=== PATIENT | female | born 1965 | race Caucasian/White ===

== ENCOUNTER → 2016-06-25 | Day surgery (SDC) | payer MEDICARE ==
[~2016-06-25] MED LIST: AMBIEN10 MG PO; BENTYL20 M1 PO; BUSPAR PO; CIPRO PO; IBUPROFEN PO; KEPPRA1000 MG PO; LIDODERM PATCH 5% TOP; NEURONTIN PO; OXYCODONE PO; OXYCONTIN PO; PHENERGAN25 M1 PO; ROBAXIN PO; SOMA PO; VOLTAREN75 MG PO
--- NOTE | ~2016-06-25 | OR ---
Unit #: [id number] #: [id number] Patient: JUNI ABRAHAM [id number] [address] [place], [place] [address] [id number] O MR#: [id number] NAME: JUNI ABRAHAM ROOM: Date of Procedure: 06/25/2016 Admission Date: 06/25/2016 Surgeon: Kashif Arvizu M.D. : 1965 Attending Physician: Kashif Arvizu M.D. Referring Physician: Shin Carbajal Jr., M.D. Primary Care Physician: Lupe Benjamin M.D. OPERATIVE REPORT JOB NOTE: CC: [facility] PREOPERATIVE DIAGNOSES 1. Low back pain, radiculopathy, herniated nucleus pulposus. 2. Neck pain, cervical radiculopathy, degenerative cervical disk disease. POSTOPERATIVE DIAGNOSES 1. Low back pain, radiculopathy, herniated nucleus pulposus. 2. Neck pain, cervical radiculopathy, degenerative cervical disk disease. PROCEDURES PERFORMED 1. Lumbar epidural steroid injection with intravenous sedation and fluoroscopic guidance for needle localization. 2. Cervical epidural steroid injection with fluoroscopic guidance for needle localization. INDICATIONS FOR PROCEDURE The patient is a 51-year-old female, who has had return of the previously mentioned symptoms due to previously mentioned nonsurgical pathology. She was treated 9 months ago and did well with 75% settling of the pain for about 6 months. The pain returned to its prior distribution at this point. She has chronic left lower extremity radicular pain that is not addressed by this procedure. The right lower extremity pain secondary to the new disk herniation is better addressed. Based on history, pathology, symptomatology, and prior response, we are going to repeat a trial of epidural steroids. Risks and benefits of all have been reviewed again. DESCRIPTION OF PROCEDURE The patient was placed in the seated position. Standard monitors were applied. 2 mg of Versed were given for sedation and anxiolysis, which were adequate. Vital signs remained stable. Sterile prep and drape then of the lumbar area was performed. The skin then at the L4-L5 level was localized with 1% lidocaine. An 18-gauge Fundrise needle was then advanced via loss of resistance technique and fluoroscopic guidance in toward the epidural space. The patient did not complain of pain or paresthesia during needle advancement. After confirming proper positioning with fluoroscopy and radiographic contrast, 80 mg of Depo-Medrol and 4 mL of 0.125% bupivacaine were deposited. Procedure #2: Cervical epidural steroid injection with fluoroscopic guidance. A separate kit was used to sterilely prep and drape the patient's cervical spine. The skin then at the C5-C6 level was localized Unit #: [id number] #: [id number] Patient: JUNI ABRAHAM with 1% lidocaine. An 18-gauge Fundrise needle was then advanced via hanging drop technique and fluoroscopic guidance in toward the epidural space. The patient did not complain of any pain or paresthesia during needle advancement. After confirming proper positioning with fluoroscopy and radiographic contrast, a dose of 80 mg of Depo-Medrol and 2 mL of preservative-free normal saline were deposited. The patient has some discomfort during the injection phase, which quickly abated. She tolerated the procedure otherwise well and was discharged to the recovery room in stable condition. Dictated by... Dave Livingston/beka TD: 06/26/2016 01:39 JOB #: [id number] OPERATIVE REPORT Page 1 of 1 X Kashif Arvizu MD X PROCEDURE OPERATIVE NOTE
== END | disposition home or self-care (01) ==
LOC: CCSC 08:26
DX: M51.16 Intervertebral disc disorders with radiculopathy, lumbar region (principal); M50.10 Cervical disc disorder with radiculopathy, unspecified cervical region; G89.29 Other chronic pain; M79.605 Pain in left leg
CPT/HCPCS: J1040; J2250

== ENCOUNTER → 2016-07-16 | Day surgery (SDC) | payer MEDICARE ==
--- NOTE | ~2016-07-16 | OR ---
Unit #: [id number] #: [id number] Patient: JUNI ABRAHAM [id number] [address] [place], [place] [address] [id number] O MR#: [id number] NAME: JUNI ABRAHAM ROOM: Date of Procedure: 07/16/2016 Admission Date: 07/16/2016 Surgeon: Kashif Arvizu M.D. : 1965 Attending Physician: Kashif Arvizu M.D. Referring Physician: Kashif Arvizu M.D. Primary Care Physician: Lupe Benjamin M.D. OPERATIVE REPORT JOB NOTE: CC: [facility] PREOPERATIVE DIAGNOSES 1. Cervical degenerative disk disease, neck pain, and cervical radiculopathy. 2. Lumbar disk herniation, back pain, and radiculopathy. POSTOPERATIVE DIAGNOSES 1. Cervical degenerative disk disease, neck pain, and cervical radiculopathy. 2. Lumbar disk herniation, back pain, and radiculopathy. PROCEDURES PERFORMED 1. Lumbar epidural steroid injection with intravenous sedation and fluoroscopic guidance for needle localization. 2. Cervical epidural steroid injection and fluoroscopic guidance for needle localization. INDICATIONS FOR PROCEDURE The patient is a 51-year-old female with return of neck and left upper extremity pain due to known significant left-sided degenerative disk disease most significant at the C5-C6 level, also back and right lower extremity pain due to postlaminectomy syndrome, and right-sided L3-L4 disk herniation. She is treated medically with p.r.n. epidural steroid injections. Last injection was done greater than 6 months ago resulted in greater than 60% improvement. Repeat injection done 3 weeks ago resulted in moderately good improvement in the back and leg pain. Neck injection was complicated bit by neurapraxia, which has since settled. Based on history, pathology, and symptomatology, plan is to repeat both injection today. DESCRIPTION OF PROCEDURE The patient was placed in a seated position. Standard monitors were applied. 1 mg of Versed was given for sedation and anxiolysis, which was adequate. Vital signs remained stable. Sterile prep and drape then of lumbar area was performed. The skin then at the L3-L4 level was localized with 1% lidocaine. An 18-gauge [employer] needle was then advanced via loss of resistance technique and fluoroscopic guidance in toward the epidural space. After confirming proper positioning with fluoroscopy and radiographic contrast, 80 mg of Depo-Medrol and 4 mL 0.125% bupivacaine were deposited. Unit #: [id number] #: [id number] Patient: JUNI ABRAHAM Procedure #2: Cervical epidural steroid injection. A separate kit was used to sterilely prep and drape the patient's cervical spine. The skin then at the C5-C6 level was localized with 1% lidocaine. An 18-gauge [employer] needle was then advanced via hanging drop technique and fluoroscopic guidance in toward the epidural space. After confirming proper positioning with fluoroscopy and radiographic contrast, 80 mg of Depo-Medrol and 2 mL of 0.25% bupivacaine were deposited. The patient tolerated the procedure otherwise well and was discharged to recovery room in stable condition. Dictated by... Dave Livingston/beka TD: 07/17/2016 01:24 JOB #: [id number] OPERATIVE REPORT Page 1 of 1 X Kashif Arvizu MD X PROCEDURE OPERATIVE NOTE
== END | disposition home or self-care (01) ==
LOC: CCSC 10:36
DX: M51.16 Intervertebral disc disorders with radiculopathy, lumbar region (principal); M50.10 Cervical disc disorder with radiculopathy, unspecified cervical region
CPT/HCPCS: J1040; J2250

== ENCOUNTER → 2016-10-10 | Day surgery (SDC) | payer MEDICARE, OTHER ==
--- NOTE | ~2016-10-10 | OR ---
Unit #: [id number] #: [id number] Patient: JUNI ABRAHAM [id number] [address] [place], [place] [address] [id number] O MR#: [id number] NAME: JUNI ABRAHAM ROOM: Date of Procedure: 10/10/2016 Admission Date: 10/10/2016 Surgeon: Kashif Arvizu M.D. : 1965 Attending Physician: Kashif Arvizu M.D. Referring Physician: Kashif Arvizu M.D. Primary Care Physician: Lupe Benjamin M.D. OPERATIVE REPORT PREOPERATIVE DIAGNOSES 1. Back pain, radiculopathy, degenerative lumbar disk disease, lumbar disk herniation. 2. Neck pain, cervical radiculopathy, degenerative cervical disk disease, cervical disk herniation. POSTOPERATIVE DIAGNOSES 1. Back pain, radiculopathy, degenerative lumbar disk disease, lumbar disk herniation. 2. Neck pain, cervical radiculopathy, degenerative cervical disk disease, cervical disk herniation. PROCEDURES PERFORMED 1. Lumbar epidural steroid injection with intravenous sedation and fluoroscopic guidance for needle localization. 2. Cervical epidural steroid injection with fluoroscopic guidance for needle localization. INDICATIONS FOR PROCEDURE The patient is a 51-year-old female with previously mentioned diagnosis. She has significant pathology at cervical and lumbar spine. She treated medically with p.r.n. epidural steroids. Last injections were done about 3 months ago. She had excellent response in both areas and just recent graduate return of the problems in her neck and lumbar spine. Based on this, her pathology, symptom complex, and treatment options, plan is to repeat a single lumbar and cervical epidural today. DESCRIPTION OF PROCEDURE Procedure #1: The patient was placed in the seated position. Standard monitors were applied. 1 mg of Versed was given for sedation and anxiolysis, which was adequate. Vital signs remained stable. Sterile prep and drape then of the lumbar area was performed. The skin then at the L4 level was localized with 1% lidocaine. An 18-gauge [employer] needle was then advanced via loss of resistance technique and fluoroscopic guidance in toward the epidural space. After confirming proper positioning with fluoroscopy and radiographic contrast, 80 mg of Depo-Medrol and 4 mL of 0.125% bupivacaine were deposited. The patient tolerated this part of procedure well. Procedure #2: Cervical epidural steroid injection with fluoroscopic guidance. A separate kit was used to sterilely prep and drape the Unit #: [id number] #: [id number] Patient: JUNI ABRAHAM patient's cervical spine. The skin then at the C6 level was localized with 1% lidocaine. An 18-gauge [employer] needle was then advanced via hanging drop technique and fluoroscopic guidance in toward the epidural space. After confirming proper needle tip positioning with fluoroscopy and radiographic contrast, a dose of 80 mg of Depo-Medrol and 2 mL of 0.25% bupivacaine were deposited. The patient tolerated the procedure otherwise well and was discharged to the recovery room in stable condition. Dictated by... Dave Livingston/beka TD: 10/10/2016 18:02 JOB #: [id number] OPERATIVE REPORT Page 1 of 1 X Kashif Arvizu MD X PROCEDURE OPERATIVE NOTE
== END | disposition home or self-care (01) ==
LOC: CCSC 09:04
DX: M50.122 Cervical disc disorder at C5-C6 level with radiculopathy (principal); M51.16 Intervertebral disc disorders with radiculopathy, lumbar region
CPT/HCPCS: J1040; J2250